=== PATIENT | male | born 1970 | race Caucasian/White ===

== ENCOUNTER 2017-10-28 00:15 | Emergency (ER) | payer SELFPAY ==
[~2017-10-28] VITALS: Ht 167.6 cm; Wt 68.2 kg
[2017-10-28] MEDS ORDERED: AUGMENTIN875 MG PO (02:19)
[2017-10-28 02:33] VITALS: BP 122/98
== END 2017-10-28 02:34 | disposition home or self-care (01) ==
LOC: EME → EDBD 00:15 → EME 02:34
DX: S01.111A Laceration without foreign body of right eyelid and periocular area, initial encounter (principal); S01.112A Laceration without foreign body of left eyelid and periocular area, initial encounter; S01.511A Laceration without foreign body of lip, initial encounter; K08.89 Other specified disorders of teeth and supporting structures; Y04.2XXA Assault by strike against or bumped into by another person, initial encounter; Y07.59 Other non-family member, perpetrator of maltreatment and neglect; F17.200 Nicotine dependence, unspecified, uncomplicated
CPT/HCPCS: 70450; 70486; 99281; 99284